=== PATIENT | female | born 1995 | race Caucasian/White ===

== ENCOUNTER 2021-12-21 09:48 | Emergency (ER) | payer MEDICAID, SELFPAY ==
[~2021-12-21] VITALS: Ht 157.5 cm; Wt 54.4 kg
[2021-12-21 12:51] VITALS: BP_SYST 139
--- NOTE | 2021-12-21 12:51 | NUR ---
Patient to ER bed 1 to gown for evaluation. Side rails up.
--- NOTE | 2021-12-21 12:54 | NUR ---
ER DR. CHUNG EXAMINING PT
--- NOTE | 2021-12-21 13:08 | NUR ---
PT CAME IN FROM HOME C/O WORSENING RASH TO SCALP X 2 MONTHS. ITCHING AND PAINFUL. PT IS AMBULATORY, AAOX4, VSS
[2021-12-21] MEDS ORDERED: GRIS500T7 PO (13:14)
[2021-12-21 14:03] VITALS: BP_SYST 139
--- NOTE | 2021-12-21 14:04 | NUR ---
Patient given written and verbal discharge instructions and verbalizes understanding. ER MD discussed with patient the results and treatment provided. Patient in stable condition. ID arm band removed. Rx of GRISEOFULVIN given. Patient educated on pain management and to follow up with PMD. Pain Scale 0/10. Opportunity for questions provided and answered. Medication side effect fact sheet provided.
== END 2021-12-21 14:03 | disposition home or self-care (01) ==
LOC: SED 09:48
DX: B35.0 Tinea barbae and tinea capitis (principal); Z88.2 Allergy status to sulfonamides; Z79.899 Other long term (current) drug therapy
CPT/HCPCS: 87070-TC; 87101; 87210-TC

== ENCOUNTER → 2021-12-21 | Emergency (ER) | payer MEDICAID, SELFPAY ==
[~2021-12-21] MED LIST: GRIS500T7 PO
[2021-12-21 17:48] LABS: HEMATOCRIT 41.5 % (36-48); MONOCYTES # (AUTO) 0.6 K/uL (0.0-1.0); RED CELL DISTRIBUTION WIDTH 13.5 % (9.0-15.0)
[2021-12-21 17:52] LABS: BASOPHILS # (AUTO) 0.1 K/uL (0.0-0.2); BASOPHILS % (AUTO) 0.9 % (0.0-2.0); EOSINOPHILS # (AUTO) 0.2 K/uL (0.0-0.4); LYMPHOCYTES % (AUTO) 26.8 % (20.5-51.5); MEAN CORPUSCULAR HEMOGLOBIN 28 pg (27-31); MEAN CORPUSCULAR HGB CONC 34 % (32-36); MEAN CORPUSCULAR VOLUME 83 fL (79.0-98.0); NEUTROPHILS # (AUTO) 4.7 K/uL (1.8-7.7); NEUTROPHILS % (AUTO) 61.3 % (40.0-70.0); PLATELET COUNT (AUTO) 330 K/uL (130-430); RED BLOOD CELL COUNT(AUTO) 4.97 MIL/uL (4.2-6.2); WHITE BLOOD COUNT (AUTO) 7.6 K/uL (4.8-10.8)
[2021-12-21 18:01] LABS: CALCIUM 8.9 mg/dL (8.4-11.0); CREATININE 0.76 mg/dL (0.55-1.30); POTASSIUM 3.5 mmol/L (3.5-5.1)
[2021-12-21 18:06] LABS: ALBUMIN 3.9 g/dL (3.4-4.8); TOTAL BILIRUBIN 0.5 mg/dL (0.0-1.0)
== END | disposition home or self-care (01) ==
LOC: SED 17:10
DX: B35.0 Tinea barbae and tinea capitis (principal); Z88.2 Allergy status to sulfonamides; Z79.899 Other long term (current) drug therapy
CPT/HCPCS: 36415; 80053; 84703; 85025; 99283